=== PATIENT | female | born 1995 | race Caucasian/White ===

== ENCOUNTER 2019-08-11 18:06 | Emergency (ER) | payer OTHER, SELFPAY ==
[2019-08-11 18:20] VITALS: BP 139/75; PULSE 91; RESP 20; TEMP 36.8; O2SAT 100
--- NOTE | 2019-08-11 19:00 | ED.SKABFB ---
HPI - Skin/Abscess/Foreign Bdy General Chief complaint: Skin/Abscess/Foreign Body Stated complaint: bites on arm Time Seen by Provider: 08/11/19 19:00 Source: patient and RN notes reviewed Mode of arrival: ambulatory Limitations: no limitations History of Present Illness HPI narrative: 23-year-old female who presents to [facility] care with complaints of bug bites with surrounding redness swelling and erythema which she noted today. Patient states she went to her grandmother's house and spent the night denies anyone else with bites and states daughter slept in same bed with her. No other bites or lesions noted on anywhere else on body.Bite maribell noted to left forearm at anterior elbow with [id number] area of red surrounding redness with warm and also bite maribell noted with surround 2cmX2.5cm area of redness on posterior left forearm with redness. MD complaint: insect bite/sting and other (surrounding cellulitus) Onset (ago): day(s) (1) Tetanus up to date: yes Location: LUE Severity: severe Severity scale (1-10): 8 Quality: burning and aching Pain Consistency: constant Exacerbating factors: movement Context: other (stayed at different home) Associated symptoms: itching and other (warmth to areas) Treatments prior to arrival: none Related Data Allergies Allergy/AdvReac Type Severity Reaction Status Date / Time NSAIDS (Non-Steroidal Allergy Intermediate facial Verified 04/16/15 17:08 Anti-Inflamma swelling poison terrence extract Allergy Mild Verified 04/16/15 17:08 naproxen Allergy Unknown Swelling Verified 04/16/15 17:08 tramadol AdvReac Intermediate Unverified 04/16/15 17:08 Review of Systems Review of Systems: Narrative: CONSTITUTIONAL: Denies fever, chills, or sweats. EYES: Denies visual changes, redness, or discharge. ENT: Denies rhinorrhea, congestion, sore throat, or otalgia. CARDIOVASCULAR: Denies chest pain, palpitations, or edema. RESPIRATORY: Denies cough or dyspnea. GASTROINTESTINAL: Denies abdominal pain, nausea, vomiting, or diarrhea. GENITOURINARY: Denies dysuria or hematuria. SKIN: positive red warm rash surrounding what appears like insect bites with itching. MUSCULOSKELETAL: Denies back pain, joint pain, or myalgia. NEUROLOGIC: Denies headache, numbness, or weakness. PSYCHIATRIC: Denies anxiety or depression. All systems reviewed & are unremarkable except as noted in HPI and below PMFSH Past Medical History Medical History (Updated 08/15/19 @ 16:20 by Cecy Hurley NP) Fracture of right foot Fracture of right upper extremity Surgical History Surgical History (Updated 08/15/19 @ 16:19 by Cecy Hurley NP) Previous section Social History Social History (Updated 08/15/19 @ 16:23 by Cecy Hurley NP) Smoking packs per day: 0.5 Smoking cigarettes per day: 10.0 Years smoked: 5 Smoking pack-years: 2.50 Smoking status: Current every day smoker Living arrangements: with family Gender identity (if verbalized by the patient): Female Comments At time of signature, agree with nursing past medical, surgical, social history. There is no relevant family history pertinent to the presenting complaint Exam Narrative: Exam Narrative: GENERAL: well-nourished, and in no acute distress. HEAD: Normocephalic, atraumatic. EYES: PERRLA and EOMI. ENT: Nares clear, no rhinorrhea or epistaxis. Mucous membranes moist. NECK: Supple.no lymphadenopathy CHEST: Clear to auscultation. No respiratory distress. HEART: Regular rate and rhythm. No murmur heard. Normal peripheral pulses. ABDOMEN: Soft, nontender, nondistended, normal active bowel sounds. EXTREMITIES: Normal range of motion. No edema. SKIN: Warm, dry, left posterior arm bite maribell with 2cmX2.5cm area of surrounding redness, bite maribell anterior left arm near elbow region with bite maribell with [id number] area of surrounding redness with warmth NEURO: No focal deficits. Alert and oriented x3. Course Vital Signs Vital signs: Vital Signs Temper
== END 2019-08-11 19:23 | disposition home or self-care (01) ==
PROVIDERS: Emergency Provider Registered Nurse
DX: L03.114 Cellulitis of left upper limb (principal); S40.862A Insect bite (nonvenomous) of left upper arm, initial encounter; S50.862A Insect bite (nonvenomous) of left forearm, initial encounter; W57.XXXA Bitten or stung by nonvenomous insect and other nonvenomous arthropods, initial encounter
CPT/HCPCS: 99213; G0463

== ENCOUNTER 2021-08-16 15:09 | Emergency (ER) | payer OTHER, SELFPAY ==
[2021-08-16 15:28] VITALS: BP 152/74; PULSE 132; RESP 18; TEMP 37.7; O2SAT 100
--- NOTE | 2021-08-16 15:29 | ED.URI ---
HPI - URI/Sore Throat General Chief Complaint: Upper Respiratory Infection Stated Complaint: sore throat and uti Time Seen by Provider: 08/16/21 15:29 Source: patient and RN notes reviewed Mode of arrival: ambulatory Limitations: no limitations History of Present Illness HPI Narrative: 25-year-old female presents concern for sore throat, difficulty swallowing, nasal congestion, rhinorrhea, body aches, chills, sweats. She also reports for the last 2 days she has had burning with urination and urinary frequency. She reports she has been taking DayQuil. She denies any other [id number] intervention. She denies flank pain. MD elicited complaint: sore throat and other (dysuria) Related Data Allergies Allergy/AdvReac Type Severity Reaction Status Date / Time NSAIDS (Non-Steroidal Allergy Intermediate facial Verified 08/16/21 15:24 Anti-Inflamma swelling poison terrence extract Allergy Mild Unknown Verified 08/16/21 15:24 naproxen Allergy Unknown Swelling Verified 08/16/21 15:24 tramadol AdvReac Intermediate Unknown Unverified 08/16/21 15:24 Review of Systems Review of Systems: CONSTITUTIONAL: Denies malaise, chills, sweats, or fever. EYES: Denies visual changes, redness, or discharge. ENT: Reports rhinorrhea, congestion, and sore throat. CARDIOVASCULAR: Denies chest pain, palpitations, or edema. RESPIRATORY: Reports cough. Denies dyspnea. GASTROINTESTINAL: Denies abdominal pain, nausea, vomiting, diarrhea SKIN: Denies rash or itching. : Reports dysuria, frequency, urgency MUSCULOSKELETAL: Denies myalgia. NEUROLOGIC: Denies headache. All systems reviewed & are unremarkable except as noted in HPI and below PMFSH Past Medical History Medical History (Updated 08/16/21 @ 15:37 by Dorothy Ramirez NP) Fracture of right foot Fracture of right upper extremity Surgical History Surgical History (Updated 08/15/19 @ 16:19 by Cecy Hurley NP) Previous section Social History Social History (Updated 08/15/19 @ 16:23 by Cecy Hurley NP) Smoking packs per day: 0.5 Smoking cigarettes per day: 10.0 Years smoked: 5 Smoking pack-years: 2.50 Smoking status: Current every day smoker Gender identity (if verbalized by the patient): Female Comments At time of signature, agree with nursing past medical, surgical, social and family history. There is no relevant family history pertinent to the presenting complaint Exam Narrative: GENERAL: Well-appearing, well-nourished, and in no acute distress. HEAD: Normocephalic EYES: PERRLA, conjunctivae clear ENT: Nares clear, turbinates edematous and erythematous, clear discharge. Mucous membranes moist. TM pearly aiken with dull light reflex bilaterally; no tragal tenderness. Oropharynx erythematous without lesions. Tonsils enlarged with exudate, no drooling, no hoarseness, no trismus, uvula midline. NECK: Supple. No lymphadenopathy CHEST: Clear to auscultation, breath sounds equal. No wheezing, rhonchi, rales, or stridor. No respiratory distress, speaks in full sentences. HEART: Regular rate and rhythm. No murmur heard. ABDOMEN: No CVA tenderness, no abdominal tenderness SKIN: Warm, dry, no rash. NEURO: Alert and oriented x3. PSYCH: Normal mood and affect Course Course Emergency Course: Patient is aware of diagnosis, understands and agrees to treatment plan. Anticipatory guidance given. Patient agrees to follow-up as directed and is aware of reasons to seek care at the emergency department. Portions of this record may have been created with voice recognition software Level of Care: Express Care Visit Vital Signs Vital signs: Reviewed. MDM - URI/Sore Throat MDM Narrative Medical decision making narrative: Differential diagnosis considered: Karimi virus, strep pharyngitis, allergic rhinitis, upper respiratory tract infection, sinusitis, rhinosinusitis, nasopharyngitis. viral pharyngitis, otitis media, otitis externa, pneumonia, bronchitis, viral cough syndrome,
== END 2021-08-16 15:41 | disposition home or self-care (01) ==
PROVIDERS: Emergency Provider Nurse Practitioner
DX: N30.01 Acute cystitis with hematuria (principal)
CPT/HCPCS: 81003; 87077; 87081; 87086; 87088; 87880; 99213; G0463

== ENCOUNTER 2022-06-14 13:37 | Emergency (ER) | payer OTHER, SELFPAY ==
--- NOTE | 2022-06-14 13:39 | ED.URI ---
HPI - URI/Sore Throat General Chief Complaint: Upper Respiratory Infection Stated Complaint: Sore Throat Time Seen by Provider: 06/14/22 14:00 Source: patient and RN notes reviewed Mode of arrival: ambulatory Limitations: no limitations History of Present Illness HPI Narrative: 26-year-old female presents concern for sore throat, sinus drainage for 1 day. Reports exposure to strep at home. Denies fever, aches, chills, sweats. MD elicited complaint: sore throat Related Data Allergies Allergy/AdvReac Type Severity Reaction Status Date / Time NSAIDS (Non-Steroidal Allergy Intermediate facial Verified 06/14/22 13:49 Anti-Inflamma swelling poison terrence extract Allergy Mild Unknown Verified 06/14/22 13:49 naproxen Allergy Unknown Swelling Verified 06/14/22 13:49 tramadol AdvReac Intermediate Unknown Verified 06/14/22 13:49 Review of Systems Review of Systems: CONSTITUTIONAL: Denies malaise, chills, sweats, or fever. EYES: Denies visual changes, redness, or discharge. ENT: Reports rhinorrhea, congestion, sore throat. Denies sinus pain, otalgia CARDIOVASCULAR: Denies chest pain, palpitations, or edema. RESPIRATORY: Denies cough. Denies dyspnea. GASTROINTESTINAL: Denies abdominal pain, nausea, vomiting, diarrhea SKIN: Denies rash or itching. MUSCULOSKELETAL: Denies myalgia. NEUROLOGIC: Denies headache. All systems reviewed & are unremarkable except as noted in HPI and below PMFSH Past Medical History Medical History (Updated 06/14/22 @ 14:20 by Dorothy Ramirez NP) Fracture of right foot Fracture of right upper extremity Surgical History Surgical History (Updated 08/15/19 @ 16:19 by Cecy Hurley NP) Previous section Social History Social History (Updated 08/15/19 @ 16:23 by Cecy Hurley NP) Smoking packs per day: 0.5 Smoking cigarettes per day: 10.0 Years smoked: 5 Smoking pack-years: 2.50 Smoking status: Current every day smoker Living arrangements: with family Gender identity (if verbalized by the patient): Female Comments At time of signature, agree with nursing past medical, surgical, social and family history. There is no relevant family history pertinent to the presenting complaint Exam Narrative: GENERAL: Well-appearing, well-nourished, and in no acute distress. HEAD: Normocephalic EYES: PERRLA, conjunctivae clear ENT: Nares clear, turbinates edematous and erythematous, clear discharge. Mucous membranes moist. TM pearly aiken with dull light reflex bilaterally; no tragal tenderness. Oropharynx not erythematous without lesions. Tonsils not enlarged and without exudate, no drooling, no hoarseness, no trismus, uvula midline. NECK: Supple. No lymphadenopathy CHEST: Clear to auscultation, breath sounds equal. No wheezing, rhonchi, rales, or stridor. No respiratory distress, speaks in full sentences. HEART: Regular rate and rhythm. No murmur heard. SKIN: Warm, dry, no rash. NEURO: Alert and oriented x3. PSYCH: Normal mood and affect Course Course Emergency Course: Patient is aware of diagnosis, understands and agrees to treatment plan. Anticipatory guidance given. Patient agrees to follow-up as directed and is aware of reasons to seek care at the emergency department. Portions of this record may have been created with voice recognition software Level of Care: Express Care Visit Vital Signs Vital signs: Reviewed. MDM - URI/Sore Throat MDM Narrative Medical decision making narrative: Differential diagnosis considered: Karimi virus, strep pharyngitis, allergic rhinitis, upper respiratory tract infection, sinusitis, rhinosinusitis, nasopharyngitis. viral pharyngitis, otitis media, otitis externa, pneumonia, bronchitis, viral cough syndrome, viral syndrome, and influenza. Exam findings show no acute concerns or changes; patient is non-toxic appearing and is in no distress. Patient is appropriate for outpatient treatment and follow-up. Lab Data Attestation: I reviewed the
[2022-06-14 13:50] VITALS: BP 116/71; PULSE 83; RESP 16; TEMP 37.2; O2SAT 99
== END 2022-06-14 14:30 | disposition home or self-care (01) ==
PROVIDERS: Emergency Provider Nurse Practitioner
DX: J02.0 Streptococcal pharyngitis (principal); F17.210 Nicotine dependence, cigarettes, uncomplicated
CPT/HCPCS: 87880; 99213; G0463

== ENCOUNTER 2023-01-24 09:45 | Emergency (ER) | payer OTHER, SELFPAY ==
[2023-01-24 09:56] VITALS: BP 130/78; PULSE 84; RESP 16; TEMP 36.9; O2SAT 100
--- NOTE | 2023-01-24 10:37 | ED.EXTPRO ---
HPI - Extremity Problem General Chief complaint: Extremity Problem,Nontraumatic Stated complaint: Right Wrist/Hand Pain Time Seen by Provider: 01/24/23 10:30 Source: patient and RN notes reviewed Mode of arrival: ambulatory Limitations: no limitations History of Present Illness HPI Narrative: Patient presents today with a 7-10 day history of right wrist pain that radiates up her forearm at times, with movement. Denies injury or trauma, but states she has been doing some heavy lifting helping her grandma removed. Denies numbness or tingling. She is pain-free at rest, but increases with movement. She has tried no [id number] treatment prior to arrival. Patient is also requesting a test. Related Data Allergies Allergy/AdvReac Type Severity Reaction Status Date / Time NSAIDS (Non-Steroidal Allergy Intermediate facial Verified 01/24/23 10:08 Anti-Inflamma swelling poison terrence extract Allergy Mild Unknown Verified 01/24/23 10:08 naproxen Allergy Unknown Swelling Verified 01/24/23 10:08 tramadol AdvReac Intermediate Unknown Verified 01/24/23 10:08 Review of Systems Review of Systems: CONSTITUTIONAL: Denies body aches, fever, chills, or sweats. EYES: Denies visual changes, redness, or discharge. ENT: Denies rhinorrhea, congestion, sore throat, or otalgia. CARDIOVASCULAR: Denies chest pain, palpitations, or edema. RESPIRATORY: Denies cough or dyspnea. GASTROINTESTINAL: Denies abdominal pain, nausea, vomiting, or diarrhea. GENITOURINARY: Denies dysuria or hematuria. SKIN: Denies rash, itching, or wounds. MUSCULOSKELETAL: Denies back pain, or myalgia.+ right wrist pain NEUROLOGIC: Denies headache, numbness, tingling, or weakness. PSYCH: Denies depression or anxiety. [facility] Past Medical History Medical History Fracture of right foot Fracture of right upper extremity Surgical History Surgical History Previous section Social History Social History Smoking packs per day: 0.5 Smoking cigarettes per day: 10.0 Years smoked: 5 Smoking pack-years: 2.50 Smoking status: Current every day smoker Living arrangements: with family Gender identity (if verbalized by the patient): Female Comments At time of signature, I have reviewed and agree with nursing past medical, surgical, social and family history unless otherwise noted. Please see nursing chart for further information. There is no relevant family history pertinent to the presenting complaint Exam Narrative: GENERAL: Well-appearing, well-nourished, and in no acute distress. HEAD: Normocephalic, atraumatic. EYES: EOMI. No redness or drainage. Conjunctivae normal. ENT: Mucous membranes pink and moist. NECK: Normal AROM. CHEST: No respiratory distress. EXTREMITIES: Right wrist: Tenderness at the area around the distal ulna, extending to the soft tissue of the 5th metacarpal. Distal sensation intact. Capillary refill normal. Radial pulse normal. Patient has pain in all directions. SKIN: Warm, dry, no rash. Capillary refill normal. Normal skin turgor. NEURO: No focal deficits. Alert and oriented x3. Gait steady. PSYCH: Normal affect. No signs of depression or anxiety. Course Course Level of Care: Express Care Visit Vital Signs Vital signs: Vital Signs Temperature 98.4 F 01/24/23 09:56 Pulse Rate 84 01/24/23 09:56 Respiratory Rate 16 01/24/23 09:56 Blood Pressure 130/78 01/24/23 09:56 Pulse Oximetry 100 01/24/23 09:56 Oxygen Delivery Room Air 01/24/23 09:56 Temperature 98.4 F 01/24/23 09:56 Pulse Rate 84 01/24/23 09:56 Respiratory Rate 16 01/24/23 09:56 Blood Pressure 130/78 01/24/23 09:56 Pulse Oximetry 100 01/24/23 09:56 Oxygen Delivery Room Air 01/24/23 09:56 Reviewed. Pt has been i
== END 2023-01-24 10:51 | disposition home or self-care (01) ==
PROVIDERS: Emergency Provider Nurse Practitioner
DX: M77.8 Other enthesopathies, not elsewhere classified (principal); F17.210 Nicotine dependence, cigarettes, uncomplicated
CPT/HCPCS: 81025; 99213; G0463

== ENCOUNTER 2024-10-21 13:41 | Emergency (ER) | payer OTHER, SELFPAY ==
--- NOTE | 2024-10-21 13:50 | ED_ITS ---
HPI - General Adult General Chief complaint: Urogenital-Female Stated complaint: test Source: patient Mode of arrival: ambulatory Limitations: no limitations History of Present Illness HPI narrative: Patient is a 28-year-old female presenting for a test. Patient reports 1st day of last menstrual cycle was September 07. She denies any pain. She denies any vaginal bleeding. She reports 1 negative and 1 positive at home test. no Additional complaints. Related Data Allergies Allergy/AdvReac Type Severity Reaction Status Date / Time NSAIDS (Non-Steroidal Allergy Intermediate facial Verified 10/21/24 14:04 Anti-Inflamma swelling poison terrence extract Allergy Mild Rash Verified 10/21/24 14:04 naproxen Allergy Unknown Swelling Verified 10/21/24 14:04 peppermint Allergy rash Verified 10/21/24 14:04 tramadol AdvReac Intermediate Swelling Verified 10/21/24 14:04 tropical fruit Allergy Rash Uncoded 10/21/24 14:04 Review of Systems Review of Systems: All systems reviewed & are unremarkable except as noted in HPI and below PMFSH Past Medical History Medical History Fracture of right foot Fracture of right upper extremity Surgical History Surgical History Previous section Social History Social History Smoking packs per day: 0.5 Smoking cigarettes per day: 10.0 Years smoked: 5 Smoking pack-years: 2.50 Smoking status: Current every day smoker Living arrangements: with family Gender identity (if verbalized by the patient): Female Exam Narrative: GENERAL: Well-appearing, morbidly obese, and in no acute distress. HEAD: Normocephalic, atraumatic. EYES: EOMI. No redness or drainage. Conjunctivae normal. ENT: Mucous membranes pink and moist. NECK: Normal AROM. Supple. CHEST: No respiratory distress. HEART: Normal rate ABDOMEN: Soft, nontender, nondistended, normal active bowel sounds. No CVAT MUSCULOSKELETAL: FROM of all extremities EXTREMITIES: Normal range of motion. No edema. SKIN: Warm, dry, no rash. Capillary refill normal. Normal skin turgor. NEURO: No focal deficits. Alert and oriented x3. Gait steady. PSYCH: Normal affect. No signs of depression or anxiety. Course Course Level of Care: Express Care Visit Vital Signs Vital signs: Vital Signs Temperature 97.1 F L 10/21/24 13:56 Pulse Rate 82 10/21/24 13:56 Respiratory Rate 16 10/21/24 13:56 Blood Pressure 128/52 L 10/21/24 13:56 Pulse Oximetry 99 10/21/24 13:56 Oxygen Delivery Room Air 10/21/24 13:56 Temperature 97.1 F L 10/21/24 13:56 Pulse Rate 82 10/21/24 13:56 Respiratory Rate 16 10/21/24 13:56 Blood Pressure 128/52 L 10/21/24 13:56 Pulse Oximetry 99 10/21/24 13:56 Oxygen Delivery Room Air 10/21/24 13:56 Medical Decision Making Vital Signs Vital Signs: Vital Signs Temperature 97.1 F L 10/21/24 13:56 Pulse Rate 82 10/21/24 13:56 Respiratory Rate 16 10/21/24 13:56 Blood Pressure 128/52 L 10/21/24 13:56 Pulse Oximetry 99 10/21/24 13:56 Oxygen Delivery Room Air 10/21/24 13:56 Temperature 97.1 F L 10/21/24 13:56 Pulse Rate 82 10/21/24 13:56 Respiratory Rate 16 10/21/24 13:56 Blood Pressure 128/52 L 10/21/24 13:56 Pulse Oximetry 99 10/21/24 13:56 Oxygen Delivery Room Air 10/21/24 13:56 Lab Data Lab results reviewed: Yes I reviewed the patient's lab results. Lab results narrative: +home Discharge Plan Discharge Clinical Impression: Positive test Patient Disposition: Home Condition: Stable Patient Language: Polish Follow-up/Referrals: UNKNOWN,DOCTOR [Primary Care Provider] - 10/21/24 (Follow up with your OBGYN in 1 day) Time of Disposition: 13:58
[2024-10-21 13:56] VITALS: BP 128/52; PULSE 82; RESP 16; TEMP 36.2; O2SAT 99
[2024-10-21 14:06] LABS: BEDSIDEPREGUCG Positive (Negative)
== END 2024-10-21 14:06 | disposition home or self-care (01) ==
PROVIDERS: Emergency Provider Registered Nurse
DX: Z32.01 Encounter for pregnancy test, result positive (principal); F17.210 Nicotine dependence, cigarettes, uncomplicated
CPT/HCPCS: 81025; 99212; G0463

== ENCOUNTER 2025-05-08 19:17 | Outpatient (CLI) | payer OTHER, SELFPAY ==
[2025-05-08] VITALS (7 sets, daily range): BP systolic 123–133; BP diastolic 63–80; PULSE 87–99
[2025-05-08 20:46] LABS: Add Urine Microscopic? YES; Appearance Urine Cloudy (Clear); Glucose Urine UA Negative (Negative); Leukocyte Esterase Ur Negative LEU/UL (Negative); Need Manual Microscopic Reviewed; Nitrate Urine Negative (Negative); Specific Grav Ur 1.029 (1.001-1.035)
== END 2025-05-08 21:45 | disposition home or self-care (01) ==
LOC: ANHOBOP 19:27 → ANHOBPP 19:29
PROVIDERS: Visit Provider Obstetrics & Gynecology
DX: O42.90 Premature rupture of membranes, unspecified as to length of time between rupture and onset of labor, unspecified weeks of gestation (principal); Z3A.00 Weeks of gestation of pregnancy not specified
CPT/HCPCS: 81001